=== PATIENT | female | born 1950 | race Two or more races ===

== ENCOUNTER 2016-11-14 20:41 | Emergency (ER) | payer MEDICARE, OTHER ==
[~2016-11-14] VITALS: Ht 162.6 cm; Wt 62.6 kg
--- NOTE | 2016-11-14 21:10 | NUR ---
Pt c/o right foot pain since yesterday, noticed foot was swollen today, minor to moderate swelling, denies trauma to foot. Pt denies CP, SOB, dizziness, n/v, no other complaints, no distress noted. Daughter translated.
[2016-11-14] MEDS ORDERED: ONDANSETRON ODT 4 MG TAB.RAPDIS SL ONE (21:15)
[2016-11-14] MEDS ORDERED: IBUPROFEN 600 MG TABLET PO ONE (21:15)
[2016-11-14] MEDS ORDERED: HYDROCODONE/APAP 5-325MG TABLET PO ONE ×2 (21:15→22:30)
[2016-11-14] MEDS ORDERED: IBUPROFEN 600 MG TABLET ONE (21:36)
[2016-11-14] MEDS ORDERED: ONDANSETRON ODT 4 MG TAB.RAPDIS ONE (21:36)
[2016-11-14] MEDS ORDERED: HYDROCODONE/APAP 5-325MG TABLET ONE ×2 (21:37→22:46)
[2016-11-14 21:51] LABS: BASOPHILS # (AUTO) 0.1 K/uL (0.0-8.0); BASOPHILS % (AUTO) 0.7 % (0.0-2.0); CREATININE 0.8 mg/dL (0.6-1.3); EOSINOPHILS # (AUTO) 0.2 K/uL (0.0-0.7); EOSINOPHILS % (AUTO) 1.6 % (0.0-7.0); HEMATOCRIT 37.4 % (37-47); HEMOGLOBIN 12.6 G/DL (12.0-16.0); LYMPHOCYTES # (AUTO) 3.4 K/UL (0.8-4.8); LYMPHOCYTES % (AUTO) 31.8 % (20.5-51.5); MEAN CORPUSCULAR HEMOGLOBIN 29.2 UUG (27.0-31.0); MEAN CORPUSCULAR HGB CONC 34 g/dL (32.0-37.0); MEAN CORPUSCULAR VOLUME 86.7 FL (81.0-99.0); MONOCYTES # (AUTO) 0.8 K/UL (0.1-1.30); MONOCYTES % (AUTO) 7.6 % (0.0-11.0); NEUTROPHILS # (AUTO) 6.3 K/UL (1.8-8.9); NEUTROPHILS % (AUTO) 58.3 % (38.5-71.5); PLATELET COUNT (AUTO) 247 K/UL (150-450); RED BLOOD CELL COUNT(AUTO) 4.31 MIL/UL (4.2-5.4); WHITE BLOOD COUNT (AUTO) 10.8 K/UL (4.0-11.2)
[2016-11-14 21:56] LABS: BILIRUBIN,TOTAL 0.4 mg/dL (0.2-1.0); URIC ACID 5.2 mg/dL (2.6-6.0)
--- NOTE | 2016-11-14 23:35 | NUR ---
Crutch training done, pt demonstrated competence. Gave pt RX and d/c instructions, verbalized understanding. Daughter translated.
== END 2016-11-14 23:58 | disposition home or self-care (01) ==
LOC: ER 20:44 → EDBD 20:44 → ER 23:58
DX: M19.071 Primary osteoarthritis, right ankle and foot (principal)
CPT/HCPCS: 36415; 73630; 80053; 84550; 85025; 85651; 86140; 99285; A4663; Q0162

== ENCOUNTER 2016-11-18 19:59 | Emergency (ER) | payer MEDICARE, OTHER ==
[~2016-11-18] VITALS: Ht 165.1 cm; Wt 61.2 kg
--- NOTE | 2016-11-18 21:35 | NUR ---
ERMD at bedside for MSE, [employer] Translation Phone utilized for [employer] translation.
[2016-11-18] MEDS ORDERED: TDAP DIPH,PERTUSS,TET VAC/PF 0.5 ML DISP.SYRIN IM ONE ×2 (22:00→22:16)
[2016-11-18 22:10] VITALS: BP 121/55
== END 2016-11-18 22:11 | disposition home or self-care (01) ==
LOC: ER 20:00
DX: S01.81XA Laceration without foreign body of other part of head, initial encounter (principal); W01.0XXA Fall on same level from slipping, tripping and stumbling without subsequent striking against object, initial encounter; Y93.89 Activity, other specified; Y92.9 Unspecified place or not applicable; Y99.9 Unspecified external cause status
CPT/HCPCS: 90715; A4217; A4663

== ENCOUNTER 2017-12-26 18:36 | Emergency (ER) | payer MEDICARE, OTHER ==
[~2017-12-26] VITALS: Ht 165.1 cm; Wt 61.2 kg
[2017-12-26] MEDS ORDERED: OXYCODONE/APAP 5-325 MG TABLET PO ONE ×2 (19:00→20:30)
[2017-12-26] MEDS ORDERED: ONDANSETRON ODT 4 MG TAB.RAPDIS SL ONE (19:00)
[2017-12-26] MEDS ORDERED: OXYCODONE/APAP 5-325 MG TABLET ONE ×2 (19:02→20:19)
[2017-12-26] MEDS ORDERED: ONDANSETRON ODT 4 MG TAB.RAPDIS ONE (19:02)
--- NOTE | 2017-12-26 19:05 | NUR ---
MEDS ADMIN, SBAR REPORT TO RICH BAILEY RN.
--- NOTE | 2017-12-26 19:09 | NUR ---
RECEIVED SHIFT REPORT FROM TAMIKO DOE RN. PT CURRENTLY IN BED. DOES NOT APPEAR TO BE IN ANY APPARENT DISTRESS.
--- NOTE | 2017-12-26 19:10 | NUR ---
BILLPOSTING SUPERVISOR AT BEDSIDE.
--- NOTE | 2017-12-26 19:24 | NUR ---
PT TAKEN TO RADIOLOGY FOR CT SCAN BY TRANS/RN.
--- NOTE | 2017-12-26 19:49 | NUR ---
PT BACK FROM CT SCAN.
--- NOTE | 2017-12-26 20:12 | NUR ---
AMBER UNGER AT BEDSIDE FOR PT UPDATE.
[2017-12-26 20:25] VITALS: BP 136/66
--- NOTE | 2017-12-26 20:25 | NUR ---
DPatient discharged to home in stable conditon. Written and verbal after care instructions given. Patient verbalizes understanding of instructions. PT D/C W/ PRESCRIPTION. ALL BELONGINGS W/ PT. PT SELF-AMBULATED WITHOUT DIFFICULTY. PT INSTRUCTED NOT TO DRIVE. PT'S FAMILY STATED SHE WILL DRIVE HER HOME IN PRIVATE VEHICLE.
== END 2017-12-26 20:27 | disposition home or self-care (01) ==
LOC: ER 18:38
DX: S63.501A Unspecified sprain of right wrist, initial encounter (principal); S83.92XA Sprain of unspecified site of left knee, initial encounter; S16.1XXA Strain of muscle, fascia and tendon at neck level, initial encounter; S30.0XXA Contusion of lower back and pelvis, initial encounter; S40.011A Contusion of right shoulder, initial encounter; W01.0XXA Fall on same level from slipping, tripping and stumbling without subsequent striking against object, initial encounter; Y93.89 Activity, other specified; Y92.89 Other specified places as the place of occurrence of the external cause; Y99.8 Other external cause status
CPT/HCPCS: 72125; 72131; 73030; 73110; 73130; A4663; Q0162

== ENCOUNTER 2018-03-28 19:06 | Emergency (ER) | payer MEDICARE, OTHER ==
[~2018-03-28] VITALS: Ht 165.1 cm; Wt 61.2 kg
--- NOTE | 2018-03-28 19:45 | NUR ---
Pt. ambulated into ED w/ c/o ELISE, congestion, general malaise, and watery eyes x2 days, denies SOB/F/C/N/V/D/CP, is yaimaebriMD lorene in w/ pt., for MSE,
--- NOTE | 2018-03-28 20:00 | NUR ---
Patient discharged to home in stable conditon. Written and verbal after care instructions given. Patient verbalizes understanding of instructions. Pt. d/c w/ prescription per MD order, d/c papers signed, all belongings w/ pt., ID band removed, ambulated w/ steady gait off unit, left in private vehicle, no acute distress,
== END 2018-03-28 20:02 | disposition home or self-care (01) ==
LOC: ER 19:07
DX: J06.9 Acute upper respiratory infection, unspecified (principal)
CPT/HCPCS: A4663